=== PATIENT | male | born 2005 | race Caucasian/White ===

== ENCOUNTER 2023-01-18 09:45 | Emergency (ER) | payer SELFPAY ==
[~2023-01-18] VITALS: Ht 180 cm; Wt 82.0 kg
[~2023-01-18 09:45] MED LIST: MMT17NA
--- NOTE | 2023-01-18 09:58 | ED GI ---
General Chief Complaint: Abdominal/GI Problems Stated Complaint: VOMITING | DIARRHEA Nursing Triage Note: PT AMB TO RM 6 WITH C/O V/D SINCE LAST SATURDAY. PT STATES HE HASNT BEEN ABLE TO KEEP ANYTHING DOWN AND HAS HAD AROUND 10 EPISODES OF VOMITTING THIS MORNING Source of Information: Patient Exam Limitations: No Limitations History of Present Illness Date Seen by Provider: Jan 18, 2023 Time Seen by Provider: 09:58 Initial Comments Patient is a 17-year-old male who presents to the emergency department with a chief complaint of abdominal cramping, nausea vomiting and diarrhea for a week. At symptom onset he took some Zofran, 8 mg according to his girlfriend. He has continued to have nausea and vomiting throughout the week. He has not taken any other medications to try and alleviate his symptoms. He denies coffee-ground emesis/blood in his emesis. No blood in his stool. He denies any recent camping/travel/[place] or [place] swimming. No fevers or chills. No sore throat, earache. No prior abdominal surgeries. No sick contacts. No family members with a history of GI illness. He does feel a little lightheaded and dizzy when standing. He has been trying to push fluids, water and Sprite. He states he has vomited multiple times today. Does not take any daily medications. He does vape, he does smoke marijuana daily, the last time he smoked marijuana was a week ago today. No history of similar issues in the past. Timing/Duration: 1 Week Severity/Quality: Cramping Location: Generalized Abdomen Radiation: No Radiation Activities at Onset: None Associated Symptoms: Nausea/Vomiting Allergies and Home Medications Allergies Coded Allergies: No Known Drug Allergies (Unverified , 01/18/23) Patient Home Medication List Home Medication List Reviewed: Yes Mometasone Furoate (Nasonex) 17 Gm [place], (Reported) Entered as Reported by: JANETT WOLFF on 02/20/091926 Ondansetron (Ondansetron Odt) 8 Mg Tab.rapdis, 8 MG SL Q8H PRN for NAUSEA/VOMITING Prescribed by: CATERINA PAN on 01/18/23 1120 Review of Systems Review of Systems Constitutional: see HPI EENTM: No Symptoms Reported Respiratory: No Symptoms Reported Cardiovascular: No Symptoms Reported Gastrointestinal: Abdominal Pain, Diarrhea, Nausea, Vomiting Genitourinary: No Symptoms Reported Musculoskeletal: no symptoms reported Skin: no symptoms reported Psychiatric/Neurological: No Symptoms Reported All Other Systems Reviewed Negative Unless Noted: Yes Physical Exam Vital Signs Vital Signs - First Documented 01/18/23 09:54 Temp 36.8 Pulse 93 Resp 14 B/P (MAP) 142/101 (115) Pulse Ox 96 O2 Delivery Room Air Capillary Refill : Height/Weight/BMI Height: '" Weight: lbs. oz. kg; 25.00 BMI Method: General Appearance: WD/WN, no apparent distress, thin HEENT: PERRL/EOMI Neck: normal inspection Respiratory: lungs clear, normal breath sounds, no respiratory distress, no accessory muscle use Cardiovascular: regular rate, rhythm Peripheral Pulses: 2+ Radial Pulses (R), 2+ Radial Pulses (L) Gastrointestinal: soft, tenderness (mild tenderness upper abdomen; no Bergman's sign; no tenderness at Mcburney's point. No inviluntary guarding or rebound tenderness) Extremities: normal range of motion, non-tender, normal inspection, no pedal edema, no calf tenderness, normal capillary refill Neurologic/Psychiatric: alert, normal mood/affect, oriented x 3 Skin: normal color, warm/dry Progress/Results/Core Measures Results/Orders Lab Results Laboratory Tests Test 01/18/23 10:03 Range/Units White Blood Count 5.8 4.3-11.0 10^3/uL Red Blood Count 5.21 4.30-5.52 10^6/uL Hemoglobin 16.0 13.3-17.7 g/dL Hematocrit 43 40-54 % Mean Corpuscular Volume 83 80-99 fL Mean Corpuscular Hemoglobin 31 25-34 pg Mean Corpuscular Hemoglobin Concent 37 H 32-36 g/dL Red Cell Distribution Width 11.8 10.0-14.5 % Platelet Count 226 130-400 10^3/uL Mean Platelet Volume 10.1 9.0-12.2 fL Immature Granulocyte % (Auto) 0 % Neutrophils (%) (Auto) 48 42-75 % Lymphocytes (%) (Auto) 41 12-44 % Monocytes (%) (Auto) 8 0-12 % Eosinophils (%) (Auto) 2 0-10 % Basophils (%) (Auto) 1 0-10 % Neutrophils # (Auto) 2.8 1.8-7.8 10^3/uL Lymphocytes # (Auto) 2.3 1.0-4.0 10^3/uL Monocytes # (Auto) 0.5 0.0-1.0 10^3/uL Eosinophils # (Auto) 0.1 0.0-0.3 10^3/uL Basophils # (Auto) 0.0 0.0-0.1 10^3/uL Immature Granulocyte # (Auto) 0.0 0.0-0.1 10^3/uL Sodium Level 138 135-145 MMOL/L Potassium Level 3.4 L 3.6-5.0 MMOL/L Chloride Level 105 98-107 MMOL/L Carbon Dioxide Level 18 L 21-32 MMOL/L Anion Gap 15 H 5-14 MMOL/L Blood Urea Nitrogen 14 7-18 MG/DL Creatinine 0.82 0.60-1.30 MG/DL Estimat Glomerular Filtration Rate 130 BUN/Creatinine Ratio 17 Glucose Level 99 70-105 MG/DL Calcium Level 9.6 8.5-10.1 MG/DL Corrected Calcium 8.5-10.1 MG/DL Total Bilirubin 1.4 H 0.1-1.0 MG/DL Aspartate Amino Transf (AST/SGOT) 16 5-34 U/L Alanine Aminotransferase (ALT/SGPT) 11 0-55 U/L Alkaline Phosphatase 49 40-136 U/L Total Protein 8.2 6.4-8.2 GM/DL Albumin 5.0 H 3.2-4.5 GM/DL Lipase 22 8-78 U/L My Orders Orders - CATERINA PAN MD Ed Iv/Invasive Line Start (01/18/23 10:05) Cbc With Automated Diff (01/18/23 10:05) Comprehensive Metabolic Panel (01/18/23 10:05) Lipase (01/18/23 10:05) Lactated Ringers (Lr 1000 Ml Iv Solution (01/18/23 10:15) Ondansetron Injection (Zofran Injectio (01/18/23 10:15) Dicyclomine Injection (Bentyl Injection) (01/18/23 11:08) Lactated Ringers (Lr 1000 Ml Iv Solution (01/18/23 11:30) Medications Given in ED Current Medications Medications Dose Ordered Sig/Paco Route Start Time Stop Time Status Last Admin Dose Admin Ondansetron HCl 4 mg ONCE ONCE IVP 01/18/23 10:15 01/18/23 10:16 DC 01/18/23 10:11 4 MG Vital Signs/I&O 01/18/23 09:54 Temp 36.8 Pulse 93 Resp 14 B/P (MAP) 142/101 (115) Pulse Ox 96 O2 Delivery Room Air Blood Pressure Mean: 115 Progress Progress Note #1: Time: 11:10 Progress Note NOtified by patient's nurse that he is still having some abdominal cramping. reviewed labs - they are reassuring. Will add some dicyclomine and re-evaluate. No clinical indications for CT at this time. Progress Note #2: Time: 12:01 Progress Note Patient seen and evaluated by me. Evaluation today includes physical exam, CBC, Chem-12, lipase level. Pertinent physical exam findings well-developed well- nourished 17-year-old male in no acute distress. Very quiet hypoactive bowel sounds diffusely tender without rebound or involuntary guarding. He has negative Bergman sign. He is afebrile. Nontoxic in appearance. Heart is regular, lungs are clear. Differential diagnosis based on history and physical exam, acute gastroen teritis, mesenteric adenitis, dehydration. Labs independently reviewed and interpreted by me, CBC is normal, chemistry pertinent for slightly low CO2 at 18, normal potassium, normal renal function. T. bili slightly elevated at 1.4. Lipase is within normal range. Patient is treated in the emergency department with 2 L of lactated Ringer's. Patient reevaluated after fluids and Zofran and still having some abdominal cramping, was subsequently given 20 mg of dicyclomine IM. Reevaluated prior to discharge and feeling much better although a little sleepy. Recommended close follow-up with a primary care physician. No clinical or objective findings to warrant imaging studies such as CAT scan. Low clinical suspicion for acute bacterial gastroenteritis. He is not febrile. He has not vomited since he has been in the emergency department. He has not had diarrhea since he has been in the emergency department. He denies bloody stools although he has had mucus. His vital signs are stable. He is sent home with prescription for Zofran with return precautions provided in both verbal and written format. All questions are sought and answered. Patient is improved at discharge. Departure Impression Primary Impression: Gastroenteritis Disposition: 01 HOME, SELF-CARE Condition: Improved Departure-Patient Inst. Decision time for Depature: 12:00 Referrals: NO,LOCAL PHYSICIAN (PCP/Family) Primary Care Physician Patient Instructions: LOCAL PHYSICIAN LIST, Viral Gastroenteritis, Adult (DC) Add. Discharge Instructions: Zofran every 8 hours for nausea for the next 24 hours. Clear liquids/bland diet for the next 12 to 24 hours. Avoid heavily spicy food, greasy foods. If you develop a fever or worsening pain that is localized to 1 part of your belly please return to the emergency department for reevaluation. Scripts Ondansetron (Ondansetron Odt) 8 Mg Tab.rapdis 8 MG SL Q8H PRN for NAUSEA/VOMITING, #12 TAB Prov: CATERINA PAN MD 01/18/23 CATERINA PAN MD Jan 18, 2023 09:58
[2023-01-18 10:12] LABS: BASOPHILS % (AUTO) 1 % (0-10); EOSINOPHILS # (AUTO) 0.1 10^3/uL (0.0-0.3); EOSINOPHILS % (AUTO) 2 % (0-10); HEMATOCRIT 43 % (40-54); LYMPHOCYTES # (AUTO) 2.3 10^3/uL (1.0-4.0); LYMPHOCYTES % (AUTO) 41 % (12-44); MEAN CORPUSCULAR HEMOGLOBIN 31 pg (25-34); MEAN CORPUSCULAR HGB CONC 37 g/dL (32-36); MEAN CORPUSCULAR VOLUME 83 fL (80-99); MEAN PLATELET VOLUME 10.1 fL (9.0-12.2); MONOCYTES # (AUTO) 0.5 10^3/uL (0.0-1.0); MONOCYTES % (AUTO) 8 % (0-12); NEUTROPHILS # (AUTO) 2.8 10^3/uL (1.8-7.8); NEUTROPHILS % (AUTO) 48 % (42-75); PLATELET COUNT 226 10^3/uL (130-400); WHITE BLOOD COUNT 5.8 10^3/uL (4.3-11.0)
[2023-01-18] MEDS ORDERED: ONDANSETRON 4 MG/2 ML (SDV) Z0FRAN IVP ONE (10:15)
[2023-01-18] MEDS ORDERED: LACTATED RINGERS 1,000 ML IV SCH ×2 (10:15→11:30)
[2023-01-18 10:26] LABS: CHLORIDE 105 MMOL/L (98-107); POTASSIUM 3.4 MMOL/L (3.6-5.0)
[2023-01-18 10:27] LABS: SODIUM 138 MMOL/L (135-145)
[2023-01-18 10:28] LABS: CALCIUM 9.6 MG/DL (8.5-10.1)
[2023-01-18 10:29] LABS: GLUCOSE 99 MG/DL (70-105); TOTAL PROTEIN 8.2 GM/DL (6.4-8.2)
[2023-01-18 10:30] LABS: CARBON DIOXIDE 18 MMOL/L (21-32)
[2023-01-18 10:31] LABS: BILIRUBIN,TOTAL 1.4 MG/DL (0.1-1.0)
[2023-01-18 10:32] LABS: ALKALINE PHOSPHATASE 49 U/L (40-136); CREATININE SERUM 0.82 MG/DL (0.60-1.30); GFR ESTIMATED 130
[2023-01-18 10:33] LABS: BUN/CREATININE RATIO 17
[2023-01-18 10:35] LABS: ALANINE AMINOTRANSFERASE 11 U/L (0-55)
[2023-01-18 10:36] LABS: LIPASE 22 U/L (8-78)
[2023-01-18] MEDS ORDERED: DICYCLOMINE 10 MG/ML (BENTYL) 2 ML AMP IM STA (11:08)
[2023-01-18] MEDS ORDERED: ONDA8TAB13 SL (11:20)
[2023-01-18 12:09] VITALS: BP 111/66
[2023-01-19] MEDS ORDERED: DICY20TA PO (16:18)
== END 2023-01-18 12:10 | disposition home or self-care (01) ==
LOC: EDUNIT# 09:45 → ER 09:50
DX: K52.9 Noninfective gastroenteritis and colitis, unspecified (principal); F17.290 Nicotine dependence, other tobacco product, uncomplicated; Z71.6 Tobacco abuse counseling
CPT/HCPCS: 36415; 80053; 83690; 85025

== ENCOUNTER 2023-01-19 13:27 | Emergency (ER) | payer SELFPAY ==
[~2023-01-19] VITALS: Ht 180 cm; Wt 77.0 kg
[~2023-01-19 13:27] MED LIST changes: +ONDA8TAB13 SL
--- NOTE | 2023-01-19 13:54 | ED Abdominal Pain ---
General Chief Complaint: Abdominal/GI Problems Stated Complaint: AB PAIN Nursing Triage Note: PT PRESENTS TO ED VIA POV FROM HOME WITH COMPLAINTS OF LOWER ABDOMINAL PAIN STARTING THIS AM. PT REPORTS HE WAS SEEN IN ED YESTERDAY FOR N/V/D AND GIVEN ZOFRAN AND DIAGNOSED WITH GASTRITIS. PT REPORTS HE HAS HAD N/V SINCE LAST SATURDAY. History of Present Illness Date Seen by Provider: Jan 19, 2023 Time Seen by Provider: 13:41 Initial Comments Patient is a 17-year-old male who presents to the emergency room with lower abdominal pain. I saw this patient yesterday complaining of diffuse lower abdominal pain, nausea, vomiting, diarrhea for 1 week. Patient had benign abdominal exam yesterday, normal labs. States that his pain worsened this morning he rated it at an 8 out of 10 as he was sitting on the toilet to have a bowel movement. He was able to have a small bowel movement nondiarrheal, nonblack nonbloody. He has no appetite today. Denies fevers or chills. No prior surgeries on his abdomen. He did take some Zofran this morning, no Tylenol or ibuprofen. He rates his pain currently at a "6". Timing/Duration: 1 Week Severity/Quality: Moderate, Cramping Location: Other (lower abdomen) Radiation: No Radiation Activities at Onset: Other (while attempting to have a BM) Associated Symptoms: Nausea/Vomiting Allergies and Home Medications Allergies Coded Allergies: No Known Drug Allergies (Unverified , 01/18/23) Patient Home Medication List Home Medication List Reviewed: Yes Mometasone Furoate (Nasonex) 17 Gm [place], (Reported) Entered as Reported by: JANETT WOLFF on 02/20/091926 Ondansetron (Ondansetron Odt) 8 Mg Tab.rapdis, 8 MG SL Q8H PRN for NAUSEA/VOMITING Prescribed by: CATERINA PAN on 01/18/23 1120 Review of Systems Review of Systems Constitutional: see HPI EENTM: No Symptoms Reported Respiratory: No Symptoms Reported Cardiovascular: No Symptoms Reported Gastrointestinal: Abdominal Pain, Nausea, Poor Appetite Genitourinary: No Symptoms Reported Musculoskeletal: no symptoms reported Skin: no symptoms reported Psychiatric/Neurological: No Symptoms Reported Past Bcjeteq-Tugwkq-Hauaqv Hx Patient Social History Tobacco Use?: Yes Tobacco type used: Cigarettes Smoking Status: Current Everyday Smoker Substance use?: No Alcohol Use?: No Pt feels they are or have been: No Past Medical History Surgery/Hospitalization HX: DENIES Physical Exam Vital Signs Vital Signs - First Documented 01/19/23 01/19/23 13:37 14:32 Temp 37.0 Pulse 70 Resp 16 B/P (MAP) 140/82 (101) Pulse Ox 99 O2 Delivery Room Air Capillary Refill : Less Than 3 Seconds Height/Weight/BMI Height: '" Weight: lbs. oz. kg; 23.00 BMI Method: General Appearance: WD/WN, no apparent distress, thin HEENT: PERRL/EOMI Respiratory: lungs clear, normal breath sounds, no respiratory distress, no accessory muscle use Cardiovascular: regular rate, rhythm Gastrointestinal: soft, other (palpable aortic pulsations (patient is thin); tenderness to palpation in the RLQ, causes pain on the left; hyperactive BS) Extremities: normal range of motion, normal inspection Neurologic/Psychiatric: alert, normal mood/affect, oriented x 3 Skin: normal color, warm/dry Progress/Results/Core Measures Results/Orders Lab Results Laboratory Tests Test 01/19/23 13:55 01/19/23 15:20 Range/Units White Blood Count 3.5 L 4.3-11.0 10^3/uL Red Blood Count 4.78 4.30-5.52 10^6/uL Hemoglobin 14.8 13.3-17.7 g/dL Hematocrit 41 40-54 % Mean Corpuscular Volume 85 80-99 fL Mean Corpuscular Hemoglobin 31 25-34 pg Mean Corpuscular Hemoglobin Concent 37 H 32-36 g/dL Red Cell Distribution Width 11.9 10.0-14.5 % Platelet Count 178 130-400 10^3/uL Mean Platelet Volume 10.2 9.0-12.2 fL Immature Granulocyte % (Auto) 0 % Neutrophils (%) (Auto) 57 42-75 % Lymphocytes (%) (Auto) 33 12-44 % Monocytes (%) (Auto) 8 0-12 % Eosinophils (%) (Auto) 2 0-10 % Basophils (%) (Auto) 1 0-10 % Neutrophils # (Auto) 2.0 1.8-7.8 10^3/uL Lymphocytes # (Auto) 1.1 1.0-4.0 10^3/uL Monocytes # (Auto) 0.3 0.0-1.0 10^3/uL Eosinophils # (Auto) 0.1 0.0-0.3 10^3/uL Basophils # (Auto) 0.0 0.0-0.1 10^3/uL Immature Granulocyte # (Auto) 0.0 0.0-0.1 10^3/uL Urine Color YELLOW Urine Clarity CLEAR Urine pH 7.0 5-9 Urine Specific Reynolds <=1.005 1.016-1.022 Urine Protein NEGATIVE NEGATIVE Urine Glucose (UA) NEGATIVE NEGATIVE Urine Ketones 1+ H NEGATIVE Urine Nitrite NEGATIVE NEGATIVE Urine Bilirubin NEGATIVE NEGATIVE Urine Urobilinogen 1.0 < = 1.0 MG/DL Urine Leukocyte Esterase NEGATIVE NEGATIVE Urine RBC (Auto) NEGATIVE NEGATIVE Urine RBC NONE /HPF Urine WBC NONE /HPF Urine Squamous Epithelial Cells RARE /HPF Urine Crystals NONE /LPF Urine Bacteria NEGATIVE /HPF Urine Casts NONE /LPF Urine Mucus NEGATIVE /LPF Urine Culture Indicated NO My Orders Orders - CATERINA APN MD Ed Iv/Invasive Line Start (01/19/23 13:54) Cbc With Automated Diff (01/19/23 13:54) Ct Abdomen/Pelvis W (01/19/23 13:54) Ns Iv 1000 Ml (Sodium Chloride 0.9%) (01/19/23 14:00) Ondansetron Injection (Zofran Injectio (01/19/23 14:00) Iohexol Injection (Omnipaque 350 Mg/Ml 1 (01/19/23 14:15) Received Contrast (Hold Metformin- Contr (01/19/23 14:15) Ns (Ivpb) (Sodium Chloride 0.9% Ivpb Bag (01/19/23 14:15) Ketorolac Injection (Toradol Injection) (01/19/23 14:30) Ua Culture If Indicated (01/19/23 14:17) Medications Given in ED Current Medications Medications Dose Ordered Sig/Paco Route Start Time Stop Time Status Last Admin Dose Admin Iohexol 100 ml ONCE ONCE IV 01/19/23 14:15 01/19/23 14:16 DC 01/19/23 14:34 80 ML Ketorolac Tromethamine 15 mg ONCE ONCE IVP 01/19/23 14:30 01/19/23 14:31 DC 01/19/23 14:32 15 MG Ondansetron HCl 4 mg ONCE ONCE IVP 01/19/23 14:00 01/19/23 14:01 DC 01/19/23 14:04 4 MG Sodium Chloride 100 ml ONCE ONCE IV 01/19/23 14:15 01/19/23 14:16 DC 01/19/23 14:34 100 ML Vital Signs/I&O 01/19/23 01/19/23 13:37 14:32 Temp 37.0 Pulse 70 73 Resp 16 16 B/P (MAP) 140/82 (101) 130/76 (94) Pulse Ox 99 100 O2 Delivery Room Air Blood Pressure Mean: 101 Diagnostic Imaging Diagonstic Imaging: CT Comments [facility], [place] NAME: MAX HARVEY [facility] REC#: [id number] PT STATUS: REG ER : 2005 PHYSICIAN: CATERINA PAN MD ADMIT DATE: 01/19/23/ER Signed Date of Exam:01/19/23 CT ABDOMEN/PELVIS W PROCEDURE: CT abdomen and pelvis with contrast. TECHNIQUE: Multiple contiguous axial images were obtained through the abdomen and pelvis after administration of intravenous contrast. Auto Exposure Controls were utilized during the CT exam to meet ALARA standards for radiation dose reduction. All CT scans use one or more of the following dose optimizing techniques: automated exposure control, MA and/or KvP adjustment based on patient size and exam type or iterative reconstruction. INDICATION: Lower abdominal pain with nausea and vomiting. No prior studies are available for comparison. The lung bases are clear. The liver and gallbladder are unremarkable. No biliary ductal dilatation is identified. The pancreas and spleen are unremarkable. No adrenal mass is detected. There is no hydronephrosis. Aorta is nonaneurysmal. The bowel loops are normal caliber. There is no obstruction. The appendix is visualized in the right lower quadrant and appears unremarkable. There are mildly prominent lymph nodes in the right lower quadrant and central mesentery. Mesenteric adenitis cannot be excluded. No free fluid or fluid collection is identified. The bladder is decompressed. Prostate is unremarkable. IMPRESSION: 1. No CT evidence of acute appendicitis. There are mildly prominent lymph nodes in the central mesentery and right lower quadrant, perhaps on the basis of mesenteric adenitis. The study is otherwise unremarkable. Dictated by: Dictated on workstation # [id number] Dict: 01/19/23 1442 Trans: 01/19/23 1526 [facility] [id number] Interpreted by: MARIBELL GONZALEZ MD Electronically signed by: MARIBELL GONZALEZ MD 01/19/23 1526 Departure Impression Primary Impression: Abdominal pain Qualified Codes: R10.30 - Lower abdominal pain, unspecified Additional Impression: Mesenteric adenitis Disposition: HOME, SELF-CARE Condition: Stable Departure-Patient Inst. Decision time for Depature: 16:16 Referrals: [facility] [place],LOCAL PHYSICIAN (PCP) Primary Care Physician Patient Instructions: Mesenteric Lymphadenitis (DC) Add. Discharge Instructions: [facility], [place] NAME: MAX HARVEY Continue to follow a bland diet over the next 24 hours. Use the Zofran as needed for nausea. Dicyclomine 20mg tablets, one tablet 30 min before meals, every 6 hours as needed for abdominal cramping. If you have any new, emergent or concerning symptoms, please return to the Em ergency Department for re-evaluation. Scripts Dicyclomine HCl (Dicyclomine HCl) 20 Mg Tablet 20 MG PO Q6H PRN for abdominal cramping, #30 TAB Prov: CATERINA PAN MD 01/19/23 CATERINA PAN MD Jan 19, 2023 13:54
[2023-01-19] MEDS ORDERED: ONDANSETRON 4 MG/2 ML (SDV) Z0FRAN IVP ONE (14:00)
[2023-01-19] MEDS ORDERED: NS IV 1000 ML 1,000 ML IV SCH (14:00)
[2023-01-19 14:13] LABS: BASOPHILS % (AUTO) 1 % (0-10); EOSINOPHILS # (AUTO) 0.1 10^3/uL (0.0-0.3); EOSINOPHILS % (AUTO) 2 % (0-10); HEMATOCRIT 41 % (40-54); HEMOGLOBIN 14.8 g/dL (13.3-17.7); LYMPHOCYTES # (AUTO) 1.1 10^3/uL (1.0-4.0); LYMPHOCYTES % (AUTO) 33 % (12-44); MEAN CORPUSCULAR HEMOGLOBIN 31 pg (25-34); MEAN CORPUSCULAR HGB CONC 37 g/dL (32-36); MEAN CORPUSCULAR VOLUME 85 fL (80-99); MEAN PLATELET VOLUME 10.2 fL (9.0-12.2); MONOCYTES # (AUTO) 0.3 10^3/uL (0.0-1.0); MONOCYTES % (AUTO) 8 % (0-12); NEUTROPHILS % (AUTO) 57 % (42-75); PLATELET COUNT 178 10^3/uL (130-400); WHITE BLOOD COUNT 3.5 10^3/uL (4.3-11.0)
[2023-01-19] MEDS ORDERED: NS 100 ML (IVPB) BAG IV ONE (14:15)
[2023-01-19] MEDS ORDERED: IOHEXOL 350 MG/ML 100 ML (OMNIPAQUE 350) VIAL IV ONE (14:15)
[2023-01-19] MEDS ORDERED: HOLD METFORMIN - RECEIVED CONTRAST 20 ML VIAL IV SCH (14:15)
[2023-01-19] MEDS ORDERED: KETOROLAC 15 MG/ML VIAL IVP ONE (14:30)
--- NOTE | 2023-01-19 14:52 | Diagnostic Imaging Report ---
PROCEDURE: CT abdomen and pelvis with contrast. TECHNIQUE: Multiple contiguous axial images were obtained through the abdomen and pelvis after administration of intravenous contrast. Auto Exposure Controls were utilized during the CT exam to meet ALARA standards for radiation dose reduction. All CT scans use one or more of the following dose optimizing techniques: automated exposure control, MA and/or KvP adjustment based on patient size and exam type or iterative reconstruction. INDICATION: Lower abdominal pain with nausea and vomiting. No prior studies are available for comparison. The lung bases are clear. The liver and gallbladder are unremarkable. No biliary ductal dilatation is identified. The pancreas and spleen are unremarkable. No adrenal mass is detected. There is no hydronephrosis. Aorta is nonaneurysmal. The bowel loops are normal caliber. There is no obstruction. The appendix is visualized in the right lower quadrant and appears unremarkable. There are mildly prominent lymph nodes in the right lower quadrant and central mesentery. Mesenteric adenitis cannot be excluded. No free fluid or fluid collection is identified. The bladder is decompressed. Prostate is unremarkable. IMPRESSION: 1. No CT evidence of acute appendicitis. There are mildly prominent lymph nodes in the central mesentery and right lower quadrant, perhaps on the basis of mesenteric adenitis. The study is otherwise unremarkable. Dictated by: Dictated on workstation # [id number]
[2023-01-19 15:30] LABS: BILIRUBIN,URINE NEGATIVE (NEGATIVE); CLARITY,URINE CLEAR; COLOR,URINE YELLOW; GLUCOSE, URINE (UA) NEGATIVE (NEGATIVE); KETONES,URINE 1+ (NEGATIVE); LEUKOCYTE ESTERASE ,URINE NEGATIVE (NEGATIVE); NITRITE,URINE NEGATIVE (NEGATIVE); PROTEIN,URINE NEGATIVE (NEGATIVE)
[2023-01-19 15:38] LABS: BACTERIA,URINE NEGATIVE /HPF; SQUAMOUS EPITHELIAL CELL,UR RARE /HPF
[2023-01-19] MEDS ORDERED: DICY20TA PO (16:18)
[2023-01-19 16:38] VITALS: BP 136/63
== END 2023-01-19 16:38 | disposition home or self-care (01) ==
LOC: EDUNIT# 13:27 → ER 13:29
DX: I88.0 Nonspecific mesenteric lymphadenitis (principal); F17.210 Nicotine dependence, cigarettes, uncomplicated
CPT/HCPCS: 36415; 74177; 81000; 85025